=== PATIENT | male | born 1965 | race Caucasian/White ===

== ENCOUNTER 2016-10-22 16:07 | Emergency (ER) | payer MEDICARE | END 2016-10-22 19:31 | disposition home or self-care (01) | LOC: D.ER 16:07 | DX: S02.651A Fracture of angle of right mandible, initial encounter for closed fracture (principal); Y04.0XXA Assault by unarmed brawl or fight, initial encounter; I10 Essential (primary) hypertension; E11.9 Type 2 diabetes mellitus without complications; E78.5 Hyperlipidemia, unspecified ==